=== PATIENT | female | born 1965 | race Caucasian/White ===

== ENCOUNTER 2017-01-14 16:40 | Emergency (ER) | payer SELFPAY ==
[~2017-01-14] VITALS: Ht 162.6 cm; Wt 72.0 kg
[2017-01-14] MEDS ORDERED: LEVO50 PO (16:59)
[2017-01-14] MEDS ORDERED: CYCLOBENZAPRINE HCL 10 MG TABLET PO ONE (18:15)
[2017-01-14] MEDS ORDERED: KETOROLAC TROMETHAMINE 60 MG/2 ML VIAL IM ONE (18:15)
[2017-01-14 18:53] VITALS: BP 114/70
== END 2017-01-14 19:00 | disposition home or self-care (01) ==
LOC: EMS 16:42
DX: M54.2 Cervicalgia (principal); M54.9 Dorsalgia, unspecified
CPT/HCPCS: 72040; 96372; 99284; J1885